=== PATIENT | female | born 1990 | race Caucasian/White ===

== ENCOUNTER → 2018-02-05 | Outpatient (CLI) | payer OTHER ==
[2018-02-05 11:10] LABS: ALBUMIN 4.3 g/dL (3.4-5.0); ALBUMIN/GLOBULIN RATIO 1.1 (1.0-1.7); CALCIUM 9.5 mg/dL (8.5-10.1); GFR 67.6; POTASSIUM 4.2 mmol/L (3.5-5.1); TOTAL BILIRUBIN 0.7 mg/dL (0.2-1.0); TOTAL PROTEIN 8.3 g/dL (6.4-8.2)
[2018-02-05 11:11] LABS: BASO % 1 % (0-3); EOS # 0.1 x10^3/uL (0.0-0.7); EOS % 3 % (0-3); HEMOGLOBIN 14.8 g/dL (12.0-15.5); LYMPH # 1.9 x10^3/uL (1.0-4.8); LYMPH % 44 % (24-48); MEAN CORPUSCULAR HEMOGLOBIN 31 pg (25-35); MEAN CORPUSCULAR HGB CONC 34 g/dL (31-37); MEAN CORPUSCULAR VOLUME 89 fL (79-100); MONO # 0.5 x10^3/uL (0.0-1.1); MONO % 11 % (0-9); NEUT # 1.8 x10^3uL (1.8-7.7); NEUT % 41 % (31-73); PLATELET COUNT 320 x10^3/uL (140-400); RED BLOOD COUNT 4.81 x10^6/uL (3.50-5.40); RED CELL DISTRIBUTION WIDTH 13.6 % (11.5-14.5); WHITE BLOOD COUNT 4.4 x10^3/uL (4.0-11.0)
== END | disposition home or self-care (01) ==
LOC: LAB 10:34
PROVIDERS: ATTEND Family Medicine
DX: Z00.00 Encounter for general adult medical examination without abnormal findings (principal)
CPT/HCPCS: 36415; 80053; 80061; 83036; 84443; 85025

== ENCOUNTER → 2018-04-15 | Outpatient (CLI) | payer OTHER ==
[2018-04-15 08:55] LABS: BASO # 0.1 x10^3/uL (0.0-0.2); BASO % 1 % (0-3); EOS # 0.1 x10^3/uL (0.0-0.7); EOS % 3 % (0-3); HEMATOCRIT 41.6 % (36.0-47.0); HEMOGLOBIN 13.6 g/dL (12.0-15.5); LYMPH # 1.7 x10^3/uL (1.0-4.8); LYMPH % 34 % (24-48); MEAN CORPUSCULAR HEMOGLOBIN 29 pg (25-35); MEAN CORPUSCULAR HGB CONC 33 g/dL (31-37); MEAN CORPUSCULAR VOLUME 88 fL (79-100); MONO # 0.4 x10^3/uL (0.0-1.1); MONO % 9 % (0-9); NEUT # 2.6 x10^3uL (1.8-7.7); NEUT % 53 % (31-73); PLATELET COUNT 315 x10^3/uL (140-400); RED BLOOD COUNT 4.73 x10^6/uL (3.50-5.40); RED CELL DISTRIBUTION WIDTH 13.2 % (11.5-14.5); WHITE BLOOD COUNT 4.9 x10^3/uL (4.0-11.0)
[2018-04-15 09:08] LABS: ALBUMIN/GLOBULIN RATIO 1.1 (1.0-1.7); CALCIUM 8.8 mg/dL (8.5-10.1); CREATININE 0.9 mg/dL (0.6-1.0); GFR 75.7; POTASSIUM 3.8 mmol/L (3.5-5.1); TOTAL BILIRUBIN 0.6 mg/dL (0.2-1.0); TOTAL PROTEIN 7.8 g/dL (6.4-8.2)
[2018-04-15 09:12] LABS: CHOLESTEROL/HDL RATIO 2.1
[2018-04-16 00:29] LABS: HEMOGLOBIN A1C 4.9 % (4.8-5.6)
== END | disposition home or self-care (01) ==
LOC: LAB 08:06
PROVIDERS: ATTEND Family Medicine
DX: Z00.00 Encounter for general adult medical examination without abnormal findings (principal); N91.5 Oligomenorrhea, unspecified
CPT/HCPCS: 36415; 80053; 80061; 83036; 84436; 84443; 84702; 85025

== ENCOUNTER → 2019-03-08 | Outpatient (CLI) | payer OTHER ==
--- NOTE | 2019-03-08 11:00 | RAD ---
EXAM: Ultrasound OB Greater than 14 weeks INDICATION: Uterine size discrepancy. Estimated weight and anatomic survey requested. TECHNIQUE: Real-time obstetrical ultrasound was performed with permanent freeze-frame documentation. COMPARISON: None. FINDINGS: POSITION: Breech HEART RATE: 150 bpm ARMINDA: 15.5 cm PLACENTA: Posterior, not low-lying. Placental margin is 5.2 cm from the internal os. CERVICAL LENGTH: 4.8 cm MATERNAL UTERUS: Unremarkable. MATERNAL ADNEXA: Unremarkable. AGE/DATES: Gestational Age by LMP: 20 weeks 4 days Gestation Age by US: 20 weeks 2 days EDC by LMP: July 22, 2019 EDC by US: July 24, 2019 WEIGHT: 336 grams +/- 50 grams PERCENTILE WEIGHT: Not assessed BIOMETRIC PARAMETERS: BPD: 4.82 cm corresponding with 20 weeks 4 days HC: 18.01 cm corresponding with 20 weeks 3 days AC: 15.12 cm corresponding with 20 weeks 2 days FL: 3.17 cm corresponding with 19 weeks 6 days ANATOMY: CARDIAC: Normal four chamber heart. Normal left ventricular outflow tract. The right ventricle outflow tract was not well assessed at this visit. UMBILICAL CORD: Normal 3 vessel cord. Normal cord insertion. BRAIN: Unremarkable. NOSE/LIPS: Unremarkable. SPINE: Unremarkable. EXTREMITIES: Unremarkable. STOMACH: Unremarkable. KIDNEYS: Unremarkable. BLADDER: Unremarkable. IMPRESSION: Normal OB ultrasound demonstrating a single viable fetus in breech position. Estimated gestational age of 20 weeks 2 days and EDC of July 24, 2019.. Electronically signed by: Matt Mejia MD (03/08/2019 10:57 AM) [facility]
== END | disposition home or self-care (01) ==
LOC: US 07:53
PROVIDERS: ATTEND Obstetrics & Gynecology
DX: O32.1XX0 Maternal care for breech presentation, not applicable or unspecified (principal); Z3A.20 20 weeks gestation of pregnancy
CPT/HCPCS: 76805

== ENCOUNTER → 2021-02-27 | Outpatient (CLI) | payer OTHER ==
[2021-02-27 17:29] LABS: FREE T4 0.88 ng/dL (0.76-1.46); THYROID STIM HORMONE (TSH) 1.084 uIU/mL (0.358-3.74)
[2021-02-27 20:51] LABS: BASO # 0.1 x10^3/uL (0.0-0.2); BASO % 1 % (0-3); EOS # 0.1 x10^3/uL (0.0-0.7); EOS % 1 % (0-3); HEMATOCRIT 41.9 % (36.0-47.0); HEMOGLOBIN 14.1 g/dL (12.0-15.5); LYMPH # 2.2 x10^3/uL (1.0-4.8); LYMPH % 26 % (24-48); MEAN CORPUSCULAR HEMOGLOBIN 29 pg (25-35); MEAN CORPUSCULAR HGB CONC 34 g/dL (31-37); MEAN CORPUSCULAR VOLUME 87 fL (79-100); MONO # 0.7 x10^3/uL (0.0-1.1); MONO % 8 % (0-9); NEUT # 5.3 x10^3/uL (1.8-7.7); NEUT % 64 % (31-73); PLATELET COUNT 388 x10^3/uL (140-400); RED CELL DISTRIBUTION WIDTH 13.7 % (11.5-14.5); WHITE BLOOD COUNT 8.3 x10^3/uL (4.0-11.0)
== END ==
LOC: LAB 16:06
PROVIDERS: ATTEND Clinical Nurse Specialist Women's Health
DX: N92.6 Irregular menstruation, unspecified (principal)
CPT/HCPCS: 36415; 83036; 84439; 84443; 85025; 86592; 86703; 86762; 86803; 86850; 86900; 86901; 87086; 87340

== ENCOUNTER → 2021-03-08 | Outpatient (CLI) | payer OTHER ==
--- NOTE | 2021-03-08 15:19 | KCIC ---
EXAM: Obstetrics sonogram. HISTORY: Unsure dates. TECHNIQUE: Sonographic imaging of the pelvis was performed. COMPARISON: None. FINDINGS: The uterus measures 10.6 x 5.5 x 4.6 cm. The cervix measures 4.3 cm in length. There is a s farida intrauterine gestational sac with pole and yolk sac. The crown-rump length is 7.1 m m, corresponding with a gestational age of 6 weeks and 4 days. There is normal heart rate of 12 6 bpm. No subchorionic hematoma is seen. The gestational sac is normal in configuration and location. The maternal ovaries are unremarkable. IMPRESSION: Single intrauterine fetus with normal heart rate and gestational age patient also measure ments of 6 weeks and 4 days. Electronically signed by: Trinity Sanders MD (03/08/2021 3:17 PM) [id number]
== END ==
LOC: KCIC US 14:30
PROVIDERS: ATTEND Clinical Nurse Specialist Women's Health
DX: Z34.91 Encounter for supervision of normal pregnancy, unspecified, first trimester (principal); N92.6 Irregular menstruation, unspecified; Z3A.01 Less than 8 weeks gestation of pregnancy
CPT/HCPCS: 76801